=== PATIENT | female | born 1935 | race Caucasian/White ===

== ENCOUNTER → 2016-12-26 | Outpatient (CLI) | payer MEDICARE, BC ==
[~2016-12-26] MED LIST: AGGRENOX PO; AGGRENOX1 CAP PO; ALPRAZOLAM PO; ARICEPT PO; ASPIRIN EC81 M1 PO; ASPIRIN81 M1 PO; ASPIRIN81 M2 PO; ASPIRIN81 MG PO; CARAFATE PO; CARAFATE1 G PO; CELEXA PO; CELEXA20 MG PO; CIPRO PO; CITALOPRAM HBR40 MG PO; CLOPIDOGREL75 MG PO; COSOPT EYE DROPS5 ML OP; DEPAKOTE PO; DIOVAN; DOXYCYCLINE PO; ECOTRIN81 M1 PO; EFFEXOR50 MG PO; EYE DROP; FLAGYL PO; FLEXERIL PO; FOLIC ACID PO; FOLIC ACID1 MG PO; HYDROCODON-ACE1 EAC7 PO; IMMODIUM1 MG/5 ML PO; KEPPRA500 MG PO; LEVOTHYROXINE150 MCG PO; LEXAPRO; LORTAB 5/500 TA1 TA1 PO; NAMENDA XR7 MG PO; NAMENDA5 MG; NORVASC PO; PAIN RELIEF650 MG PO; PERCOCET5/325 PO; PLAVIX; PLAVIX PO; PROTONIX PO; REMERON PO; SIMVASTATIN40 MG PO; SYNTHROID; SYNTHROID PO; SYNTHROID0.15 MG PO; TEMAZEPAM PO; THERALITH XR T1 EACH PO; TYLOX1 CAP 5/50 PO; UNITHROID150 MCG PO; VITAMIN B 6 PO; VITAMIN B650 M1 PO; VITB PO; ZOCOR PO; ZOFRAN ODT4 MG PO
--- NOTE | ~2016-12-26 | NM8 ---
[facility] A Service of [facility] RADIOLOGY TEXT RESULTS PATIENT: CHER DAUGHERTY LOCATION: [facility] : 35 UNIT #: [id number] AGE: [address]: Beka Reeves MD SEX: F ORDER DR: [id number] [facility]. [place], [place] [address] [id number] O MR#: [id number] Acc #: [id number] NAME: CHER DAUGHERTY. : 1935 SEX: F STUDY DATE/TIME: 12/26/2016 12:38 UNIT: [facility] ROOM: STUDY DESCRIPTION: IA Bone or Joint Whole Body Attending Physician: Beka Reeves Jr., M.D. Referring Physician: Beka Reeves Jr., M.D. Ordering Physician: Beka Reeves Jr., M.D. Primary Care Physician: Jason Eng M.D. MEDICAL IMAGING REPORT This report is preliminary unless electronic signature is present EXAM Whole-body bone scan 12/26/2016 HISTORY 81-year-old female complains of chest wall pain, mass in right axilla. History of severe back pain and spinal stenosis. COMPARISON Lumbar spine series 05/25/[address] cervical spine 05/25/2016 TECHNIQUE Whole-body and selected spot images were performed of the axial and appendicular skeleton following the intravenous administration of 27.8 mCi technetium 99m MDP. FINDINGS Examination demonstrates a moderate amount of diffuse uptake within the byl-gm-jolqr cervical spine most likely related to patient's prior spinal surgery as the patient has undergone multilevel discectomies C3-4, C4-5, C5-6 and posterior spinal fusion from C3-C7. There is also increased uptake in the lower lumbar spine also related to previous lumbar spine surgery as the patient has undergone L3-4, L4-5 discectomy and posterior spinal fusion procedure. Photopenic area noted in both knees compatible with bilateral total knee arthroplasties. Marked increased uptake is seen within the first CMC joint and first MCP joints bilaterally compatible with osteoarthritis. There is mild increased uptake within the right shoulder involving the glenohumeral joint and also the AC joint. This may be indicative of underlying arthropathy. No abnormal uptake identified within the long bones or ribs. There is increased uptake within the right sternoclavicular joint most likely degenerative in nature. IMPRESSION 1. No abnormal uptake within the right axillary region and no abnormal STS. [facility] A Service of [facility] RADIOLOGY TEXT RESULTS PATIENT: CHER DAUGHERTY LOCATION: [facility] : 35 UNIT #: [id number] AGE: [address]: Beka Reeves MD SEX: F ORDER DR: uptake within the thorax to account patient's chest pain. 2. Abnormal uptake within the right shoulder and AC joint most likely on the basis of arthropathy. Correlate with conventional radiographs may be helpful. 3. Extensive uptake within the cervical spine and lumbar spine corresponding to previous spinal surgery as detailed above. 4. Advanced arthritic uptake within the first CMC joint and first MCP joints bilaterally. Dictated by... Velma Wong M.D. THIS IS AN ELECTRONICALLY VERIFIED REPORT Velma Wong M.D. at 12/30/2016 7:29 AM Corine TD: 12/29/2016 16:07 JOB #: [id number] MEDICAL IMAGING REPORT Page 1 of 1 COPY
== END | disposition home or self-care (01) ==
LOC: CNUC 09:22
DX: R07.81 Pleurodynia (principal); R22.31 Localized swelling, mass and lump, right upper limb
CPT/HCPCS: 78306; A9503

== ENCOUNTER → 2017-02-10 | Day surgery (SDC) | payer MEDICARE, BC ==
--- NOTE | ~2017-02-10 | OR ---
Unit #: [id number] #: [id number] Patient: CHER DAUGHERTY [id number] [address] [address] [id number] O MR#: [id number] NAME: CHER DAUGHERTY ROOM: Date of Procedure: 02/10/2017 Admission Date: 02/10/2017 Surgeon: Jaden Atkinson M.D. : 1935 Attending Physician: Jaden Atkinson M.D. Primary Care Physician: Jason Eng M.D. OPERATIVE REPORT PREOPERATIVE DIAGNOSES Back pain, radiculopathy, degenerative disk disease, and spinal stenosis post spinal fusion. POSTOPERATIVE DIAGNOSES Back pain, radiculopathy, degenerative disk disease, and spinal stenosis post spinal fusion. PROCEDURE PERFORMED Lumbar epidural steroid injection with intravenous sedation under fluoroscopic guidance and needle localization. HISTORY The patient is an 82-year-old female, status post fusion at L3 through S1. 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 She was treated medically with p.r.n. epidural steroid injections. Last were done 10 months ago. She did fairly well with greater than 70% settling associated with the injections for about 8 months or so. Pain is increased over the last 2 months. Based on history, pathology, symptomatology, response to treatment, and available treatment options, we are going to proceed with a repeat epidural steroid injection today. DESCRIPTION OF PROCEDURE The patient was placed in a seated position. Standard monitors were applied. Then, 1 mg of Versed was given for sedation and anxiolysis, which was adequate. Vital signs remained stable. Sterile prep and drape of the lumbar area was performed. The skin at the L2 level was localized with 1% lidocaine. An 18-gauge Farmstrtead needle was then advanced via loss of resistance technique and fluoroscopic guidance in toward the epidural space. After confirming proper positioning with fluoroscopy and radiographic contrast, 80 mg of Depo-Medrol and 4 mL of 0.125% bupivacaine were deposited. The patient tolerated the procedure otherwise well and was discharged to the recovery room in stable condition. Dictated by... Lupe Amador/jeni TD: 02/10/2017 12:35 Unit #: [id number] #: [id number] Patient: CHER DAUGHERTY JOB #: [id number] OPERATIVE REPORT Page 1 of 1 X Jaden Atkinson MD X PROCEDURE OPERATIVE NOTE
== END | disposition home or self-care (01) ==
LOC: CCSC 08:05
DX: M51.16 Intervertebral disc disorders with radiculopathy, lumbar region (principal); M48.06 Spinal stenosis, lumbar region; Z98.1 Arthrodesis status
CPT/HCPCS: J1040; J2250

== ENCOUNTER → 2017-02-17 | Day surgery (SDC) | payer MEDICARE, BC ==
--- NOTE | ~2017-02-17 | OR ---
Unit #: [id number] #: [id number] Patient: CHER DAUGHERTY [id number] [address] [address] [id number] O MR#: [id number] NAME: CHER DAUGHERTY ROOM: Date of Procedure: 02/17/2017 Admission Date: 02/17/2017 Surgeon: Jaden Atkinson M.D. : 1935 Attending Physician: Jaden Atkinson M.D. Primary Care Physician: Jason Eng M.D. OPERATIVE REPORT JOB NOTE: CC: [facility] PREOPERATIVE DIAGNOSES Postlumbar fusion, lumbar spinal stenosis, degenerative disk disease, back pain, radiculopathy. POSTOPERATIVE DIAGNOSES Postlumbar fusion, lumbar spinal stenosis, degenerative disk disease, back pain, radiculopathy. PROCEDURE PERFORMED Lumbar epidural steroid injection with intravenous sedation and fluoroscopic guidance for needle localization. INDICATIONS FOR PROCEDURE The patient is an 82-year-old female, status post L3 through S1 fusion. She has adjacent level disease with spinal stenosis and significant pain. She is not a surgical candidate. She treated medically with p.r.n. epidural steroid injections. Last injection resulted in fairly good improvement of her symptom complex not quite to her usual baseline, so we are going to proceed with a second injection today and then follow up in the future as needed. DESCRIPTION OF PROCEDURE The patient was placed in the seated position. Standard monitors were applied. 1 mg of Versed was given for sedation and anxiolysis, which was adequate. Vital signs remained stable. Sterile prep and drape then of the lumbar area was performed. The skin then at the L2 level was localized with 1% lidocaine. An 18-gauge Entigral Systemstead needle was then advanced via loss of resistance technique and fluoroscopic guidance in toward the epidural space. After confirming proper positioning with fluoroscopy and radiographic contrast, 80 mg of Depo-Medrol and 4 mL of 0.125% bupivacaine were deposited. The patient tolerated the procedure otherwise well and was discharged to the recovery room in stable condition. Dictated by... Jaden Atkinson M.D. LHP/lashonl TD: 02/18/2017 00:01 Unit #: [id number] #: [id number] Patient: CHER DAUGHERTY JOB #: [id number] OPERATIVE REPORT Page 1 of 1 X Jaden Atkinson MD X PROCEDURE OPERATIVE NOTE
== END | disposition home or self-care (01) ==
LOC: CCSC 09:22
DX: M48.06 Spinal stenosis, lumbar region (principal); M51.16 Intervertebral disc disorders with radiculopathy, lumbar region; Z98.1 Arthrodesis status; Z85.3 Personal history of malignant neoplasm of breast
CPT/HCPCS: J1040; J2250

== ENCOUNTER → 2017-05-20 | Outpatient (CLI) | payer MEDICARE, BC ==
--- NOTE | ~2017-05-20 | TH ---
Unit #: [id number] #: [id number] Patient: CHER DAUGHERTY [id number] [address] [address] [id number] O MR#: [id number] NAME: CHER DAUGHERTY. : 1935 SEX: F STUDY DATE/TIME: 05/20/2017 UNIT: CN ROOM: STUDY DESCRIPTION: Stress nuclear Attending Physician: Rafy Rodriguez M.D. Referring Physician: Rafy Rodriguez M.D. Primary Care Physician: Diane Larson M.D. CARDIOLOGY REPORT EXAM Stress nuclear. HISTORY Abnormal resting ECG with left bundle branch block, chest pain, shortness of breath, history of TIA, history of tobacco abuse. FINDINGS Result text under stress test. Please see this report for result text. Dictated by... Lupe Alves/rd TD: 05/21/2017 07:33 JOB #: [id number] CARDIOLOGY REPORT Page 1 of 1 X Jamel Maxwell MD CARDIOLOGY REPORT
--- NOTE | ~2017-05-20 | ST ---
Unit #: [id number] #: [id number] Patient: CHER DAUGHERTY [id number] [address] [address] [id number] O MR#: [id number] NAME: CHER DAUGHERTY. : 1935 SEX: F STUDY DATE/TIME: 05/20/2017 UNIT: [facility] ROOM: STUDY DESCRIPTION: Stress test Attending Physician: Rafy Rodriguez M.D. Referring Physician: Rafy Rodriguez M.D. Primary Care Physician: Diane Larson M.D. CARDIOLOGY REPORT EXAM Stress nuclear and ECG combined. INDICATIONS Abnormal resting ECG with left bundle branch block, chest pain, shortness of breath, history of TIA, history of tobacco abuse. SUMMARY Patient was given Lexiscan intravenously while at rest as well as technetium 99 Cardiolite, 9.24 and 30.6 mCi at rest and stress, respectively. Appropriate views were obtained. FINDINGS The rest and stress ECG showed left bundle branch block with secondary ST changes. There were no patient symptoms noted. The heart rate increased from 76 to 105 and blood pressure decreased from 188/95 to 146/86. Perfusion images demonstrated chest wall attenuation artifact in the anterior septum, but otherwise normal perfusion throughout the myocardium both at rest and stress. The chest wall attenuation artifact is slightly more prominent at rest than at stress. Planar images showed no significant patient motion at rest or stress. There is moderate chest wall attenuation artifact. There is no significant patient motion noted. There is no LV or RV enlargement or increased lung uptake. End-diastolic volume is 86 mL. Ejection fraction is 51%. Summed stress score is a 0. Summed difference score is a 0. IMPRESSION 1. Myocardial perfusion scan showed no ischemia or infarction. 2. Low normal ejection fraction. 3. Normal LV size. 4. Bundle branch block pattern during acquisition likely contributed to the low normal ejection fraction. Dictated by... Jamel Maxwell M.D. WILL/rd TD: 05/21/2017 07:22 Unit #: [id number] #: [id number] Patient: CHER DAUGHERTY JOB #: [id number] CARDIOLOGY REPORT Page 1 of 1 X Jamel Maxwell MD CARDIOLOGY REPORT
== END | disposition home or self-care (01) ==
LOC: CNUC 08:26
DX: R94.31 Abnormal electrocardiogram [ECG] [EKG] (principal); R07.9 Chest pain, unspecified; I51.7 Cardiomegaly; I51.89 Other ill-defined heart diseases; I34.0 Nonrheumatic mitral (valve) insufficiency
CPT/HCPCS: 78452; 93017; 93306; A9500; J2785

== ENCOUNTER → 2017-06-01 | Outpatient (CLI) | payer MEDICARE, BC ==
--- NOTE | ~2017-06-01 | MY27 ---
[facility] A Service of [facility] RADIOLOGY TEXT RESULTS PATIENT: CHER DAUGHERTY LOCATION: [facility] : 35 UNIT #: [id number] AGE: [address]: Basilio Luo MD SEX: F ORDER DR: [id number] [facility] [address] [facility]. [place], [place] [address] [id number] O MR#: [id number] Acc #: [id number] NAME: CHER DAUGHERTY. : 1935 SEX: F STUDY DATE/TIME: 06/01/2017 13:09 UNIT: [facility] ROOM: STUDY DESCRIPTION: MY DIVINE SCREEN W/ CAD UNI LT Attending Physician: Basilio Luo M.D. Referring Physician: Basilio Luo M.D. Ordering Physician: Basilio Luo M.D. Primary Care Physician: Diane Larson M.D. MEDICAL IMAGING REPORT This report is preliminary unless electronic signature is present EXAM Left digital screening mammogram with CAD COMPARISON January 29, 2016; February 14, 2014, postbiopsy left diagnostic mammogram dated November 26, 2012 and other mammograms dated November 19, 2012; December 31, 2009; October 18, 2007. INDICATION Breast cancer screening. 82-year-old female with history of right mastectomy for breast cancer in 2012. She denies current complaints and presents for breast cancer screening today. She also reports mother with breast cancer. FINDINGS There are scattered fibroglandular densities in the left breast. There are no suspicious findings in the left breast. IMPRESSION 1. No mammographic evidence of malignancy in the left breast. Continued annual screening mammography is recommended for as long as the patient is in good health ([employer]). 2. Post right mastectomy for breast cancer. Patients over the age of 40 are entered into a reminder system with target due date for the next mammogram. A result letter will also be sent to the patient. BIRADS: 2 Benign finding. Dictated by... [facility] A Service [facility] RADIOLOGY TEXT RESULTS PATIENT: CHER DAUGHERTY LOCATION: [facility] : 35 UNIT #: [id number] AGE: [address]: Basilio Luo MD SEX: F ORDER DR: Luis Ny M.D. THIS IS AN ELECTRONICALLY VERIFIED REPORT Luis Ny M.D. at 06/09/2017 2:37 AM NAZARIO/monse TD: 06/01/2017 23:46 JOB #: [id number] MEDICAL IMAGING REPORT Page 1 of 1 COPY
== END | disposition home or self-care (01) ==
LOC: CWCC 05-25 11:15
DX: Z12.31 Encounter for screening mammogram for malignant neoplasm of breast (principal); Z85.3 Personal history of malignant neoplasm of breast; Z80.3 Family history of malignant neoplasm of breast; Z90.11 Acquired absence of right breast and nipple
CPT/HCPCS: G0202

== ENCOUNTER → 2017-06-23 | Day surgery (SDC) | payer MEDICARE, BC ==
--- NOTE | ~2017-06-23 | OR ---
Unit #: [id number] #: [id number] Patient: CHER DAUGHERTY [id number] [address] [address] [id number] O MR#: [id number] NAME: CHER DAUGHERTY. ROOM: Date of Procedure: 06/23/2017 Admission Date: 06/23/2017 Surgeon: Jaden Atkinson M.D. : 1935 Attending Physician: Jaden Atkinson M.D. Primary Care Physician: Diane Larson M.D. OPERATIVE REPORT PREOPERATIVE DIAGNOSES Postlumbar fusion, degenerative disk disease, spinal stenosis, back pain, radiculopathy. POSTOPERATIVE DIAGNOSES Postlumbar fusion, degenerative disk disease, spinal stenosis, back pain, radiculopathy. PROCEDURE PERFORMED Lumbar epidural steroid injection with intravenous sedation and fluoroscopic guidance for needle localization. INDICATIONS FOR PROCEDURE The patient is an 82-year-old female with previously mentioned diagnosis. Plan is to repeat an epidural steroid injection if return of her symptoms. She did very well with injections that were completed 4 months ago. She has nonsurgical pathology. DESCRIPTION OF PROCEDURE The patient was placed in a seated position. Standard monitors were applied. 1 mg of Versed was given for sedation and anxiolysis, which was adequate. Vital signs remained stable. Sterile prep and drape then of the lumbar area was performed. The skin at the L2 level was localized with 1% lidocaine. An 18-gauge Hustead needle was then advanced via loss of resistance technique and fluoroscopic guidance in toward the epidural space. After confirming proper positioning with fluoroscopy and radiographic contrast, 80 mg of Depo-Medrol and 4 mL of 0.125% bupivacaine were deposited. The patient tolerated the procedure otherwise well and was discharged to the recovery room in stable condition. Dictated by... Lupe AmadorP/jeni TD: 06/23/2017 16:54 JOB #: [id number] CC: Diane Larson M.D. Unit #: [id number] #: [id number] Patient: CHER DAUGHERTY OPERATIVE REPORT Page 1 of 1 X Jaden Atkinson MD X PROCEDURE OPERATIVE NOTE
== END | disposition home or self-care (01) ==
LOC: CCSC 10:02
DX: M51.16 Intervertebral disc disorders with radiculopathy, lumbar region (principal); M48.06 Spinal stenosis, lumbar region; Z87.440 Personal history of urinary (tract) infections; Z86.73 Personal history of transient ischemic attack (TIA), and cerebral infarction without residual deficits; Z85.3 Personal history of malignant neoplasm of breast; Z88.0 Allergy status to penicillin; Z88.2 Allergy status to sulfonamides; Z88.8 Allergy status to other drugs, medicaments and biological substances; Z79.02 Long term (current) use of antithrombotics/antiplatelets; Z79.82 Long term (current) use of aspirin; Z79.899 Other long term (current) drug therapy; Z98.1 Arthrodesis status
CPT/HCPCS: J1040; J2250